=== PATIENT | male | born 1960 | race Caucasian/White ===

== ENCOUNTER 2017-12-27 21:32 | Emergency (ER) | payer OTHER ==
[2017-12-27] MEDS ORDERED: LACTATED RINGERS 1,000 ML ONE (22:03)
[2017-12-27] MEDS ORDERED: LACTATED RINGERS 1,000 ML IVS ONE ×2 (22:04→22:05)
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
[2017-12-27] MEDS ORDERED: fentaNYL CITRATE INJ 50 MCG/ML AMP ONE (22:28)
[2017-12-27] MEDS ORDERED: fentaNYL CITRATE INJ 50 MCG/ML AMP IV ONE ×2 (22:28→23:43)
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
[2017-12-28 00:03] VITALS: BP 152/87; TEMP 99.2; O2SAT 99
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
== END 2017-12-27 23:50 | disposition short-term general hospital (02) ==
LOC: ER 21:32
DX: S20.211A Contusion of right front wall of thorax, initial encounter (principal); S22.41XA Multiple fractures of ribs, right side, initial encounter for closed fracture; S60.221A Contusion of right hand, initial encounter; S80.02XA Contusion of left knee, initial encounter; Z88.0 Allergy status to penicillin; V43.53XA Car driver injured in collision with pick-up truck in traffic accident, initial encounter; Y92.410 Unspecified street and highway as the place of occurrence of the external cause